=== PATIENT | male | born 1970 | race Two or more races ===

== ENCOUNTER 2021-09-24 19:42 | Emergency (ER) | payer MEDICAID ==
[~2021-09-24] VITALS: Ht 165.1 cm; Wt 90.0 kg
[2021-09-24] MEDS ORDERED: TETANUS-DIPTH-ACEL PERTUSSIS 0.5ML SYR Tdap IM ONE (20:00)
[2021-09-24] MEDS ORDERED: IOHEXOL 350 MG/ML 100ML IJ ONE (20:57)
[2021-09-24] MEDS ORDERED: LIDOCAINE 1% HCL (LOCAL ANESTH.) INJ 20ML MDV IJ ONE (22:15)
[2021-09-24 22:42] VITALS: BP 130/83
== END 2021-09-24 22:50 | disposition home or self-care (01) ==
LOC: ER 19:42
DX: S01.81XA Laceration without foreign body of other part of head, initial encounter (principal); F17.210 Nicotine dependence, cigarettes, uncomplicated; V86.59XA Driver of other special all-terrain or other off-road motor vehicle injured in nontraffic accident, initial encounter; Y93.89 Activity, other specified; Y92.410 Unspecified street and highway as the place of occurrence of the external cause; Y99.8 Other external cause status
CPT/HCPCS: 12015; 70450; 70486; 71260; 72125; 74177; 90471; 90715; 99284; J2001; Q9967

== ENCOUNTER 2021-10-07 12:53 | Emergency (ER) | payer MEDICAID ==
[~2021-10-07] VITALS: Ht 165.1 cm; Wt 91.7 kg
[2021-10-07 13:03] VITALS: BP 156/101
== END 2021-10-07 14:50 | disposition home or self-care (01) ==
LOC: ER 12:53
DX: S01.81XD Laceration without foreign body of other part of head, subsequent encounter (principal); F17.210 Nicotine dependence, cigarettes, uncomplicated; X58.XXXD Exposure to other specified factors, subsequent encounter

== ENCOUNTER 2021-10-11 10:53 | Emergency (ER) | payer MEDICAID ==
[~2021-10-11] VITALS: Ht 165.1 cm; Wt 91.5 kg
[2021-10-11 16:35] VITALS: BP 144/89
== END 2021-10-11 17:25 | disposition home or self-care (01) ==
LOC: ER 11:00
DX: S01.81XD Laceration without foreign body of other part of head, subsequent encounter (principal); F17.210 Nicotine dependence, cigarettes, uncomplicated; W45.8XXD Other foreign body or object entering through skin, subsequent encounter

== ENCOUNTER 2023-02-08 15:35 | Emergency (ER) | payer MEDICAID ==
[~2023-02-08] VITALS: Ht 165.1 cm; Wt 95.5 kg
[2023-02-08] MEDS ORDERED: cloNIDine HCL 0.1 MG TAB PO ONE (16:45)
[2023-02-08] MEDS ORDERED: NITROGLYCERIN 0.4 MG SL TAB SL ONE (16:45)
[2023-02-08 16:59] LABS: Basophils # (auto) 0 10 ^3/uL (0-0.2); Basophils % (auto) 0.2 % (0.0-2.0); Eosinophils # (auto) 0.1 10 ^3/uL (0-0.8); Lymphocytes # (auto) 2.5 10 ^3/uL (0.4-5.4); Lymphocytes % (auto) 28.7 % (10.0-50.0); Mean Corpuscular Hemoglobin 32.4 pg (28.0-32.0); Mean Corpuscular Hgb Conc. 34.7 g/dL (32.0-36.0); Mean Corpuscular Volume 93.2 fL (80.0-100.0); Monocytes # (auto) 0.7 10 ^3/uL (0-1.3); Monocytes % (auto) 7.5 % (0.0-12.0); Neutrophils # (auto) 5.5 10 ^3/uL (1.6-8.6); Neutrophils % (auto) 62.6 % (37.0-80.0); Nucleated Red Blood Cells % 0.1 %; Red Blood Cells 4.94 10^6/uL (4.5-5.90); Red Cell Distribution Width 12.6 % (11.8-14.3); White Blood Cell 8.8 10^3/uL (4.4-10.8)
[2023-02-08 17:17] LABS: Alanine Aminotransferase 67 U/L (7-40); Albumin 4.8 g/dL (3.2-4.8); Alkaline Phosphatase 97 U/L (46-116); Anion Gap 6 (5-15); Aspartate Aminotransferase 23 U/L (13-40); BUN/Creatinine Ratio 15.3 (10.0-20.0); Bilirubin, Total 0.4 mg/dL (0.2-1.0); Blood Urea Nitrogen 15 mg/dL (9-23); Calcium 9.9 mg/dL (8.7-10.4); Carbon Dioxide 29 mmol/L (20-30); Chloride 104 mmol/L (98-107); Glucose 107 mg/dL (74-106); Magnesium 2.1 mg/dL (1.6-2.6); Potassium 4.4 mmol/L (3.5-5.1); Sodium 139 mmol/L (136-145); Total Protein 7.4 g/dL (5.7-8.2)
[2023-02-08 17:26] LABS: INR 0.98 (0.9-1.15); Partial Thromboplastin Time 25.8 SEC (24.5-34.5); Prothrombin Time 10.3 sec (9.3-11.8)
[2023-02-08 22:25] LABS: Urine Bacteria NONE SEEN /hpf (None Seen); Urine Blood Negative /uL (Negative); Urine Clarity Clear (Clear); Urine Color Yellow (Yellow); Urine Mucus FEW (None Seen); Urine Protein, UAD TRACE (Negative); Urine Urobilinogen Normal (Negative); Urine WBC 2 /hpf (0 - 3); Urine pH 5.5 (5.0-8.0)
[2023-02-08 23:14] VITALS: PULSE 66; TEMP 97.9
[2023-02-08 23:55] VITALS: BP 161/93; RESP 17; O2SAT 96
[2023-02-09] MEDS ORDERED: LISI10TA34 PO (00:27)
[2023-02-09] MEDS ORDERED: CLON0.2T PO (00:27)
== END 2023-02-09 00:30 | disposition home or self-care (01) ==
LOC: ER 15:35
DX: I16.0 Hypertensive urgency (principal); I10 Essential (primary) hypertension; F17.210 Nicotine dependence, cigarettes, uncomplicated; F10.10 Alcohol abuse, uncomplicated
CPT/HCPCS: 36415; 71045; 80053; 81001; 83735; 83880; 84484; 85025; 85610; 85730; 93005